=== PATIENT | female | born 2000 | race African-American/Black ===

== ENCOUNTER 2022-12-06 20:40 | Emergency (ER) | payer OTHER ==
[~2022-12-06] VITALS: Ht 170.2 cm; Wt 50.0 kg
[2022-12-06 21:23] VITALS: BP 114/79
[2022-12-07] MEDS ORDERED: PRED20TA2 PO (01:09)
[2022-12-07] MEDS ORDERED: AMOX-277 PO (01:09)
[2022-12-07] MEDS ORDERED: ACET-1158 PO (01:09)
[2022-12-07] MEDS ORDERED: methylPREDNISolone SOD SUCC 125 MG/2 ML VL IM ONE (01:15)
[2022-12-07] MEDS ORDERED: cefTRIAXone SOD 1,000 MG VL IM ONE (01:15)
[2022-12-07] MEDS ORDERED: ACETAMINOPHEN 325 MG TAB PO ONE (01:15)
== END 2022-12-07 03:25 | disposition home or self-care (01) ==
LOC: ER 20:40
DX: J02.0 Streptococcal pharyngitis (principal); R51.9 Headache, unspecified; Z88.1 Allergy status to other antibiotic agents; Z88.6 Allergy status to analgesic agent
CPT/HCPCS: 87880; 96372; 99284; J0696; J2930